=== PATIENT | male | born 1980 | race Caucasian/White ===

== ENCOUNTER 2019-03-22 01:33 | Emergency (ER) | payer OTHER ==
[~2019-03-22] VITALS: Ht 172.7 cm; Wt 122.5 kg
[2019-03-22 01:33] VITALS: BP_SYST 150
[2019-03-22 02:01] VITALS: BP_SYST 150
== END 2019-03-22 02:01 ==
LOC: EDSEX 01:33 → SED 01:33
DX: E11.9 Type 2 diabetes mellitus without complications (principal); R20.2 Paresthesia of skin
CPT/HCPCS: 99283